=== PATIENT | female | born 1940 | race Caucasian/White ===

== ENCOUNTER → 2017-03-27 | Outpatient (CLI) | payer MEDICARE ==
[~2017-03-27] VITALS: Ht 162.6 cm; Wt 70.9 kg
[~2017-03-27] MED LIST: ACET325 PO; ASPI81 PO; CHLORHEXIDINE GLUCONATE 2 % 1 PACK (2 CLOTHS) TOPICAL PRN; DEXAMETHASONE SOD PHOS 4 MG/ML VIAL IV ONE; DO NOT ADM ANY ANTICOAGULANT DRUGS PRN; DYAZ37.5 PO; ECHI167T PO; ESTR.625 PO; FENO50TA PO; INSULIN HUMAN REGULAR 1,000 UNITS/10 ML VIAL SQ PRN; K-TA10TA PO; LACTATED RINGER'S 1000 ML IV PRN; LIDOCAINE HCL 1% PF 5 ML AMPULE OTHER ONE; MAXZ PO; METO50TA PO; METOPROLOL TARTRATE 25 MG TAB PO PRN; MIDAZOLAM HCL 2 MG/2 ML VIAL IV ONE; ONDANSETRON HCL 4 MG/2 ML VIAL IV PUSH ONE; POTA-243 PO; POVIDONE IODINE 5% (ANTISEPSIS KIT) 4 APPLICATIONS EACH NARE PRN; PREM0.622 PO; PROPOFOL 200 MG/20 ML AMP IV ONE; RANI150 PO; RANI150T PO; ROSU10 PO; SODIUM CHLORID 0.9% 500 ML IV PRN; TOPR50TA PO; TRAM50TA PO; ePHEDrine/NS 25 MG/5 ML SYR IV ONE
--- NOTE | 2017-03-27 11:16 | GIPROC ---
[facility] [address]. [facility], [address] ERCP PROCEDURE REPORT EXAM DATE: 03/27/2017 PATIENT NAME: Shante Mai MR #: [id number] BIRTHDATE: 1940 ATTENDING: Dion Love MD ORDER #: [id number] FLOOR INSTALLER: Robyn Kellogg Hogan, Darren, and Liss Colon STATUS: outpatient INDICATIONS: The patient is a 76 yr old female here for an ERCP due to abnormal liver function test PROCEDURE PERFORMED: ERCP with stent placement MEDICATIONS: None and Per Anesthesia. CONSENT: The patient understands the risks and benefits of the procedure and understands that these risks include, but are not limited to: sedation, allergic reaction, infection, perforation and/or bleeding. Alternative means of evaluation and treatment include, among others: physical exam, x-rays, and/or surgical intervention. The patient elects to proceed with this endoscopic procedure. medical equipment was checked for proper function. Hand hygiene and appropriate measures for infection prevention was taken. After the risks, benefits and alternatives of the procedure were thoroughly explained, Informed was verified, confirmed and timeout was successfully executed by the treatment team. With the patient in left semi-prone position, medications were administered intravenously.The Pentax [id number] was passed from the mouth into the esophagus and further advanced from the esophagus into the stomach. From stomach scope was directed to the second portion of the duodenum. Major papilla was aligned with the duodenoscope. The scope position was confirmed fluoroscopically. Rest of the findings/therapeutics are given below. The scope was then completely withdrawn from the patient and the procedure completed. The pulse, BP, and O2 saturation were monitored and documented by the physician and the nursing staff throughout the entire procedure. The patient was cared for as planned according to standard protocol. The patient was then discharged to recovery in stable condition and with appropriate post procedure care. The ampulla was located the second portion of the duodenum. The ampulla appeared normal. There was a dilation of the CBD, common hepatic duct, intraheptic ducts, left hepatic ducts, and right hepatic ducts. A single stone was seen in the common bile duct. Under endoscopic and fluoroscopic guidance a 10 Fr x 7 cm stent was placed in the bile duct. ADVERSE EVENT: There were no complications. IMPRESSIONS: Dilated CBD, CHD and IHDs Filiing defect at mid CBD measuring 1.1 Cm likely a stone 10 F 7 CM plastic stent placed successfully RECOMMENDATIONS: Monitor LFT's ERCP in 3 months for sphincterotomy and stone extraction REPEAT EXAM: Return 3 months ERCP Dion Love MD eSigned: Dion Love MD 03/27/2017 11:16 AM cc:
--- NOTE | 2017-03-27 11:33 | RADRPT ---
EXAM DATE/TIME: 03/27/2017 10:54 [place] COMPARISON: No previous studies available for comparison. INDICATIONS : Cholelithiasis. Stent placement. FLUORO TIME: 1.27 minutes IMAGE COUNT: 4 CONTRAST: Instilled by Ordering Physician MEDICAL HISTORY : Cholelithiasis. SURGICAL HISTORY : None. ENCOUNTER: Initial ACUITY: 1 day PAIN SCORE: Non-responsive. LOCATION: Right flank FINDINGS: An ERCP was performed by the ordering physician. The images demonstrate enlarged filling defect in the distal dilated common duct of 4 images submitte d. CONCLUSION: ERCP as above. Kosta Chen MD FACR on March 27, 2017 at 11:31 Board Certified Radiologist. This report was verified electronically.
[2017-03-27 12:05] VITALS: BP 156/78; PULSE 70; RESP 18; O2SAT 99
--- NOTE | 2017-03-27 17:58 | EKG ---
Date Performed: 03/27/2017 Time Performed: 09:07:30 PTAGE: 76 years EKG: Sinus rhythm WITH FIRST DEGREE AV BLOCK ABNORMAL ECG PREVIOUS TRACING : 05/16/2010 09.35 DOCTOR: Lila Mcgowan Interpretating Date/Time 03/27/2017 17:57:13
== END ==
LOC: HSDC 08:11
PROVIDERS: ATTEND Specialist
DX: K80.50 Calculus of bile duct without cholangitis or cholecystitis without obstruction (principal); K83.8 Other specified diseases of biliary tract; I10 Essential (primary) hypertension
CPT/HCPCS: 00740; 43274; 74330; 93005; C1769; C2625; J1100; J2250; J2405; J3010; J7120